=== PATIENT | male | born 1960 | race Caucasian/White ===

== ENCOUNTER 2018-12-30 16:29 | Emergency (ER) | payer OTHER, SELFPAY ==
[2018-12-30 16:51] VITALS: BP 180/63; PULSE 82; RESP 18; TEMP 37; O2SAT 98
--- NOTE | 2018-12-30 16:56 | ED.EXTPRO ---
HPI - Extremity Problem <Karen Gann PA-C - Last Filed: 12/30/18 20:52> General Chief complaint: Extremity Problem,Nontraumatic Stated complaint: left calf caleb horse x2 days Time Seen by Provider: 12/30/18 16:38 Source: patient Mode of arrival: ambulatory Limitations: no limitations History of Present Illness HPI Narrative: This 58-year-old gentleman states he was sitting in a recliner to days ago when he had a sudden cramp ?like a charley horse? in his left calf. He states that he went to stretch it out when he heard and felt a pop in the mid calf, now area feels hard and bruised and swollen. He denies any trauma at all. He feels like swelling is worse today. He states that he does not have any pain in the knee or ankle, is able to bear weight with a cane. He denies any chest pain or dyspnea. He denies any new medication changes, states he is no longer in AFib and stopped diltiazem because it seemed to make symptoms worse. Not on anticoagulation. He does not have any known history of blood clots, Durand cyst, etc. He has not taken any pain medicine aside from trying a Valium which she had in the past for muscle spasms. He states this did not help and just made him sleepy Related Data Allergies Allergy/AdvReac Type Severity Reaction Status Date / Time No Known Drug Allergies Allergy Verified 12/30/18 16:51 Review of Systems <Karen Gann PA-C - Last Filed: 12/30/18 20:52> Review of Systems ROS Unobtainable: All systems reviewed & are unremarkable except as noted in HPI and below PFSH <Karen Gann PA-C - Last Filed: 12/30/18 20:52> Medical History (Updated 12/30/18 @ 18:52 by Karen Gann PA-C) NAVJOT (obstructive sleep apnea) (Chronic) Seasonal allergies (Chronic) Asthma (Chronic) Atrial fibrillation (Chronic) HTN (hypertension) (Chronic) Surgical History (Updated 12/30/18 @ 17:13 by Karen Gann PA-C) Status post hernia repair (Resolved) Status post lumbar surgery (Resolved) Social History Smoking Status: Never smoker Social History Smoking Status: Never smoker Exam <Karen Gann PA-C - Last Filed: 12/30/18 20:52> Narrative Exam Narrative: GENERAL APPEARANCE: Patient sitting comfortably, in no distress. NECK/THYROID: Neck supple LUNGS: Clear to auscultation bilaterally. HEART: Regular rate and rhythm without murmur, normal S1, S2, no S3 or S4. ABDOMEN: Soft, NT, ND, + BS x 4 quadrants EXTREMITIES: No cyanosis or visible edema. Left mid calf is tender to palpation, no palpable masses. Right ankle measures 21.5 cm, calf 39 cm. Left ankle measures 22 cm, calf 42 cm NEUROLOGIC: Alert and oriented, normal speech, and coordination. Initial Vital Signs Initial Vital Signs: Vital Signs Temperature 98.6 F 12/30/18 16:51 Pulse Rate 82 12/30/18 16:51 Respiratory Rate 18 12/30/18 16:51 Blood Pressure 180/63 H 12/30/18 16:51 Pulse Oximetry 98 12/30/18 16:51 <Jaylon Martinez DO - Last Filed: 12/30/18 20:57> Initial Vital Signs Initial Vital Signs: Vital Signs Temperature 98.6 F 12/30/18 16:51 Pulse Rate 82 12/30/18 16:51 Respiratory Rate 18 12/30/18 16:51 Blood Pressure 180/63 H 12/30/18 16:51 Pulse Oximetry 98 12/30/18 16:51 Course <Karen Gann PA-C - Last Filed: 12/30/18 20:52> Course Narrative: Patient does not appear to have a complete tear on exam, able to ambulate comfortably with his cane and compression wrap. He had improvement in pain with Toradol, which he requested wishing to avoid any opioid meds. Advised return if acutely worse or new sx, otherwise f/u with PCP in next few days to reassess and he is agreeable Orders Ordered: ED Orders 12/30/18 17:06 US periph venous low extrem lt Stat 12/30/18 18:10 Basic Metabolic Panel Stat Complete Blood Count AUTO DIFF Stat Magnesium Stat Discontinued Medications Ketorolac Tromethamine (Toradol) 60 mg IM NOW ONE Stop: 12/30/18 18:22 Last Admin: 12/30/18 18:28 Dose: 60 mg Vital Signs - 8 hr 12/30/18 16:51 12/30/18 18:12 Temperature 98.6 F Pulse Rate 82 79 Respiratory Rate 18 18 Blood Pressure 180/63 H Blood Pressure [Left Arm] 147/67 H Pulse Oximetry 98 100 <Jaylon Martinez DO - Last Filed: 12/30/18 20:57> Orders Ordered: ED Orders 12/30/18 17:06 US periph venous low extrem lt Stat 12/30/18 18:10 Basic Metabolic Panel Stat Complete Blood Count AUTO DIFF Stat Magnesium Stat Discontinued Medications Ketorolac Tromethamine (Toradol) 60 mg IM NOW ONE Stop: 12/30/18 18:22 Last Admin: 12/30/18 18:28 Dose: 60 mg Vital Signs - 8 hr 12/30/18 16:51 12/30/18 18:12 Temperature 98.6 F Pulse Rate 82 79 Respiratory Rate 18 18 Blood Pressure 180/63 H Blood Pressure [Left Arm] 147/67 H Pulse Oximetry 98 100 MDM - Extremity (Nontraumatic) <Karen Gann PA-C - Last Filed: 12/30/18 20:52> Lab Data Result diagrams: 12/30/18 18:10 12/30/18 18:10 Lab Results 12/30/18 12/30/18 Range/Units 18:10 18:10 WBC 8.5 (4.5-11.0) X10^3/uL RBC 4.79 (4.5-5.9) X10^6/uL Hgb 13.7 (13.5-17.5) g/dL Hct 39.8 L (41-53) % MCV 83.0 (80-100) fL MCH 28.5 (26-34) PG MCHC 34.3 (30-36) % RDW 13.8 (11.6-14.8) % Plt Count 176 (150-400) X10^3/uL Neut % (Auto) 80.4 H (50-75) % Lymph % (Auto) 11.4 L (25-40) % Yell % (Auto) 5.8 (3-14) % Eos % (Auto) 1.8 L (2-4) % Baso % (Auto) 0.6 (0-2) % Neut # (Auto) 6800 (2122-9932) /uL Lymph # (Auto) 1000 L (5303-0069) /uL Yell # (Auto) 500 (0-900) /uL Eos # (Auto) 200 (0-450) /uL Baso # (Auto) 0 (0-100) /uL Sodium 137 (137-145) mmol/L Potassium 3.9 (3.4-5.1) mmol/L Chloride 103 (98-107) mmol/L Carbon Dioxide 29 (22-32) mmol/L BUN 10 (9-20) mg/dL Creatinine 0.70 (0.66-1.25) mg/dL Estimated GFR > 60.0 (>60) mL/min BUN/Creatinine Ratio 14.3 (6-22) Glucose 120 H (70-100) mg/dL Calcium 9.0 (8.4-10.2) mg/dL Magnesium 2.2 (1.6-2.3) mg/dL Imaging Data Venous US: Radiologist's impression: 26 Karen Gann PA-C Find Patient Imaging Hunter Crowe 58 M 1960 ACTIVITY DATE EXAM STATUS AUTHOR 12/30/18 17:06 [place] [address] Ultrasound Report Signed Patient: Hunter Crowe AMR#: [id number] : 1960cct:[id number] Age/Sex: 58 / MDate of Service: 12/30/18 Loc: ED Accession Number: [id number] Procedure: US periph venous low extrem lt Ordering Provider: Karen Gann P.A-C PROCEDURE: US PERIPH VENOUS LOW EXTREM LT INDICATIONS: LEFT CALF PAIN AND SWELLING TECHNIQUE: Real-time imaging, as well as color and pulse Doppler interrogation, were performed of the lower extremity deep veins from the inguinal ligament to the popliteal fossa. COMPARISON: None. FINDINGS: The common femoral, femoral and popliteal veins are normally compressible, and free of intraluminal thrombus. Color and pulse Doppler demonstrate normal phasic intraluminal flow. There is normal augmentation response to distal compression maneuver. There is a lobulated hypoechoic structure identified within the gastrocnemius/soleus muscles along the posterior aspect of the left lower leg. This structure measures up to 2.4 cm in length. IMPRESSION: 1. No evidence of left lower extremity deep vein thrombosis. 2. Fluid collection within the calf muscles may represent a hematoma related to a muscle injury. MRI is recommended to exclude other etiologies. Dictated by: Malcolm Rojas M.D. on 12/30/2018 at 17:00 Approved by: Malcolm Rojas M.D. on 12/30/2018 at 17:01 <Jaylon Mratinez DO - Last Filed: 12/30/18 20:57> Lab Data Lab Results 12/30/18 12/30/18 Range/Units 18:10 18:10 WBC 8.5 (4.5-11.0) X10^3/uL RBC 4.79 (4.5-5.9) X10^6/uL Hgb 13.7 (13.5-17.5) g/dL Hct 39.8 L (41-53) % MCV 83.0 (80-100) fL MCH 28.5 (26-34) PG MCHC 34.3 (30-36) % RDW 13.8 (11.6-14.8) % Plt Count 176 (150-400) X10^3/uL Neut % (Auto) 80.4 H (50-75) % Lymph % (Auto) 11.4 L (25-40) % Yell % (Auto) 5.8 (3-14) % Eos % (Auto) 1.8 L (2-4) % Baso % (Auto) 0.6 (0-2) % Neut # (Auto) 6800 (8333-2797) /uL Lymph # (Auto) 1000 L (8714-3716) /uL Yell # (Auto) 500 (0-900) /uL Eos # (Auto) 200 (0-450) /uL Baso # (Auto) 0 (0-100) /uL Sodium 137 (137-145) mmol/L Potassium 3.9 (3.4-5.1) mmol/L Chloride 103 (98-107) mmol/L Carbon Dioxide 29 (22-32) mmol/L BUN 10 (9-20) mg/dL Creatinine 0.70 (0.66-1.25) mg/dL Estimated GFR > 60.0 (>60) mL/min BUN/Creatinine Ratio 14.3 (6-22) Glucose 120 H (70-100) mg/dL Calcium 9.0 (8.4-10.2) mg/dL Magnesium 2.2 (1.6-2.3) mg/dL Discharge Plan Departure Patient Disposition: Home Clinical Impression: Hematoma of left lower extremity Qualifiers: Encounter type: initial encounter Qualified Code(s): S80.12XA - Contusion of left lower leg, initial encounter Gastrocnemius muscle tear Qualifiers: Encounter type: initial encounter Laterality: left Qualified Code(s): S86.112A - Strain of other muscle(s) and tendon(s) of posterior muscle group at lower leg level, left leg, initial encounter Discharge Date/Time: 12/30/18 19:17 Interventions: ED Discharge Assessment Last Done: 12/30/18 19:17 Instructions: DI for Calf Muscle Strain Activity Restrictions/Additional Instructions: You have a tear in your calf muscle that has caused a hematoma, or blood collection. I do not think you have a complete tear from what I can tell based on your muscle strength and movement on exam today. Please wear the compression wrap to help with pain and use your cane this weekend. Gentle walking is okay as you tolerate, but avoid stairs and uneven ground. You can take Aleve 1 tablet every 12 hours, if needed for pain. You should return as we talked about if you have any acutely worsening symptoms over the weekend, otherwise follow up with your PCP early next week for recheck to determine whether any further studies or referral may be needed based on your progress [facility] [Outside] <Jaylon Martinez DO - Last Filed: 12/30/18 20:57> [facility] ED Attending Yas Attestation: I was available for consultation during this patient's emergency department encounter
--- NOTE | 2018-12-30 17:06 | DI.US.S_ITS ---
PROCEDURE: US PERIPH VENOUS LOW EXTREM LT INDICATIONS: LEFT CALF PAIN AND SWELLING TECHNIQUE: Real-time imaging, as well as color and pulse Doppler interrogation, were performed of the lower extremity deep veins from the inguinal ligament to the popliteal fossa. COMPARISON: None. FINDINGS: The common femoral, femoral and popliteal veins are normally compressible, and free of intraluminal thrombus. Color and pulse Doppler demonstrate normal phasic intraluminal flow. There is normal augmentation response to distal compression maneuver. There is a lobulated hypoechoic structure identified within the gastrocnemius/soleus muscles along the posterior aspect of the left lower leg. This structure measures up to 2.4 cm in length. IMPRESSION: 1. No evidence of left lower extremity deep vein thrombosis. 2. Fluid collection within the calf muscles may represent a hematoma related to a muscle injury. MRI is recommended to exclude other etiologies. Dictated by: Malcolm Rojas M.D. on 12/30/2018 at 17:00 Approved by: Malcolm Rojas M.D. on 12/30/2018 at 17:01
--- NOTE | 2018-12-30 17:15 | ED_ITS ---
HPI - Extremity Problem <Karen Gann PA-C - Last Filed: 12/30/18 20:52> General Chief complaint: Extremity Problem,Nontraumatic Stated complaint: left calf caleb horse x2 days Time Seen by Provider: 12/30/18 16:38 Source: patient Mode of arrival: ambulatory Limitations: no limitations History of Present Illness HPI Narrative: This 58-year-old gentleman states he was sitting in a recliner to days ago when he had a sudden cramp ?like a charley horse? in his left calf. He states that he went to stretch it out when he heard and felt a pop in the mid calf, now area feels hard and bruised and swollen. He denies any trauma at all. He feels like swelling is worse today. He states that he does not have any pain in the knee or ankle, is able to bear weight with a cane. He denies any chest pain or dyspnea. He denies any new medication changes, states he is no longer in AFib and stopped diltiazem because it seemed to make symptoms worse. Not on anticoagulation. He does not have any known history of blood clots, Durand cyst, etc. He has not taken any pain medicine aside from trying a Valium which she had in the past for muscle spasms. He states this did not help and just made him sleepy Related Data Allergies Allergy/AdvReac Type Severity Reaction Status Date / Time No Known Drug Allergies Allergy Verified 12/30/18 16:51 Review of Systems <Karen Gann PA-C - Last Filed: 12/30/18 20:52> Review of Systems ROS Unobtainable: All systems reviewed & are unremarkable except as noted in HPI and below PFSH <Karen Gann PA-C - Last Filed: 12/30/18 20:52> Medical History (Updated 12/30/18 @ 18:52 by Karen Gann PA-C) NAVJOT (obstructive sleep apnea) (Chronic) Seasonal allergies (Chronic) Asthma (Chronic) Atrial fibrillation (Chronic) HTN (hypertension) (Chronic) Surgical History (Updated 12/30/18 @ 17:13 by Karen Gann PA-C) Status post hernia repair (Resolved) Status post lumbar surgery (Resolved) Social History Smoking Status: Never smoker Social History Smoking Status: Never smoker Exam <Karen Gann PA-C - Last Filed: 12/30/18 20:52> Narrative Exam Narrative: GENERAL APPEARANCE: Patient sitting comfortably, in no distress. NECK/THYROID: Neck supple LUNGS: Clear to auscultation bilaterally. HEART: Regular rate and rhythm without murmur, normal S1, S2, no S3 or S4. ABDOMEN: Soft, NT, ND, + BS x 4 quadrants EXTREMITIES: No cyanosis or visible edema. Left mid calf is tender to palpation, no palpable masses. Right ankle measures 21.5 cm, calf 39 cm. Left ankle measures 22 cm, calf 42 cm NEUROLOGIC: Alert and oriented, normal speech, and coordination. Initial Vital Signs Initial Vital Signs: Vital Signs Temperature 98.6 F 12/30/18 16:51 Pulse Rate 82 12/30/18 16:51 Respiratory Rate 18 12/30/18 16:51 Blood Pressure 180/63 H 12/30/18 16:51 Pulse Oximetry 98 12/30/18 16:51 <Jaylon Martinez DO - Last Filed: 12/30/18 20:57> Initial Vital Signs Initial Vital Signs: Vital Signs Temperature 98.6 F 12/30/18 16:51 Pulse Rate 82 12/30/18 16:51 Respiratory Rate 18 12/30/18 16:51 Blood Pressure 180/63 H 12/30/18 16:51 Pulse Oximetry 98 12/30/18 16:51 Course <Karen Gann PA-C - Last Filed: 12/30/18 20:52> Course Narrative: Patient does not appear to have a complete tear on exam, able to ambulate comfortably with his cane and compression wrap. He had improvement in pain with Toradol, which he requested wishing to avoid any opioid meds. Advised return if acutely worse or new sx, otherwise f/u with PCP in next few days to reassess and he is agreeable Orders Ordered: ED Orders 12/30/18 17:06 US periph venous low extrem lt Stat 12/30/18 18:10 Basic Metabolic Panel Stat Complete Blood Count AUTO DIFF Stat Magnesium Stat Discontinued Medications Ketorolac Tromethamine (Toradol) 60 mg IM NOW ONE Stop: 12/30/18 18:22 Last Admin: 12/30/18 18:28 Dose: 60 mg Vital Signs - 8 hr 12/30/18 16:51 12/30/18 18:12 Temperature 98.6 F Pulse Rate 82 79 Respiratory Rate 18 18 Blood Pressure 180/63 H Blood Pressure [Left Arm] 147/67 H Pulse Oximetry 98 100 <Jaylon Martinez DO - Last Filed: 12/30/18 20:57> Orders Ordered: ED Orders 12/30/18 17:06 US periph venous low extrem lt Stat 12/30/18 18:10 Basic Metabolic Panel Stat Complete Blood Count AUTO DIFF Stat Magnesium Stat Discontinued Medications Ketorolac Tromethamine (Toradol) 60 mg IM NOW ONE Stop: 12/30/18 18:22 Last Admin: 12/30/18 18:28 Dose: 60 mg Vital Signs - 8 hr 12/30/18 16:51 12/30/18 18:12 Temperature 98.6 F Pulse Rate 82 79 Respiratory Rate 18 18 Blood Pressure 180/63 H Blood Pressure [Left Arm] 147/67 H Pulse Oximetry 98 100 MDM - Extremity (Nontraumatic) <Karen Gann PA-C - Last Filed: 12/30/18 20:52> Lab Data Result diagrams: 12/30/18 18:10 12/30/18 18:10 Lab Results 12/30/18 12/30/18 Range/Units 18:10 18:10 WBC 8.5 (4.5-11.0) X10^3/uL RBC 4.79 (4.5-5.9) X10^6/uL Hgb 13.7 (13.5-17.5) g/dL Hct 39.8 L (41-53) % MCV 83.0 (80-100) fL MCH 28.5 (26-34) PG MCHC 34.3 (30-36) % RDW 13.8 (11.6-14.8) % Plt Count 176 (150-400) X10^3/uL Neut % (Auto) 80.4 H (50-75) % Lymph % (Auto) 11.4 L (25-40) % [place] % (Auto) 5.8 (3-14) % Eos % (Auto) 1.8 L (2-4) % Baso % (Auto) 0.6 (0-2) % Neut # (Auto) 6800 (3001-4342) /uL Lymph # (Auto) 1000 L (2544-4701) /uL [place] # (Auto) 500 (0-900) /uL Eos # (Auto) 200 (0-450) /uL Baso # (Auto) 0 (0-100) /uL Sodium 137 (137-145) mmol/L Potassium 3.9 (3.4-5.1) mmol/L Chloride 103 (98-107) mmol/L Carbon Dioxide 29 (22-32) mmol/L BUN 10 (9-20) mg/dL Creatinine 0.70 (0.66-1.25) mg/dL Estimated GFR > 60.0 (>60) mL/min BUN/Creatinine Ratio 14.3 (6-22) Glucose 120 H (70-100) mg/dL Calcium 9.0 (8.4-10.2) mg/dL Magnesium 2.2 (1.6-2.3) mg/dL Imaging Data Venous US: Radiologist's impression: 26 Karen Gann PA-C Find Patient Imaging Hunter Crowe 58 M 1960 ACTIVITY DATE EXAM STATUS AUTHOR 12/30/18 17:06 [place] [address] Ultrasound Report Signed Patient: Hunter Crowe AMR#: [id number] : 1960cct:[id number] Age/Sex: 58 / MDate of Service: 12/30/18 Loc: ED Accession Number: [id number] Procedure: US periph venous low extrem lt Ordering Provider: Karen Gann P.A-C PROCEDURE: US PERIPH VENOUS LOW EXTREM LT INDICATIONS: LEFT CALF PAIN AND SWELLING TECHNIQUE: Real-time imaging, as well as color and pulse Doppler interrogation, were performed of the lower extremity deep veins from the inguinal ligament to the popliteal fossa. COMPARISON: None. FINDINGS: The common femoral, femoral and popliteal veins are normally compressible, and free of intraluminal thrombus. Color and pulse Doppler demonstrate normal phasic intraluminal flow. There is normal augmentation response to distal compression maneuver. There is a lobulated hypoechoic structure identified within the gastrocnemius /soleus muscles along the posterior aspect of the left lower leg. This structure measures up to 2.4 cm in length. IMPRESSION: 1. No evidence of left lower extremity deep vein thrombosis. 2. Fluid collection within the calf muscles may represent a hematoma related to a muscle injury. MRI is recommended to exclude other etiologies. Dictated by: Malcolm Rojas M.D. on 12/30/2018 at 17:00 Approved by: Malcolm Rojas M.D. on 12/30/2018 at 17:01 <Jaylon Martinez DO - Last Filed: 12/30/18 20:57> Lab Data Lab Results 12/30/18 12/30/18 Range/Units 18:10 18:10 WBC 8.5 (4.5-11.0) X10^3/uL RBC 4.79 (4.5-5.9) X10^6/uL Hgb 13.7 (13.5-17.5) g/dL Hct 39.8 L (41-53) % MCV 83.0 (80-100) fL MCH 28.5 (26-34) PG MCHC 34.3 (30-36) % RDW 13.8 (11.6-14.8) % Plt Count 176 (150-400) X10^3/uL Neut % (Auto) 80.4 H (50-75) % Lymph % (Auto) 11.4 L (25-40) % [place] % (Auto) 5.8 (3-14) % Eos % (Auto) 1.8 L (2-4) % Baso % (Auto) 0.6 (0-2) % Neut # (Auto) 6800 (6372-6196) /uL Lymph # (Auto) 1000 L (5983-8138) /uL [place] # (Auto) 500 (0-900) /uL Eos # (Auto) 200 (0-450) /uL Baso # (Auto) 0 (0-100) /uL Sodium 137 (137-145) mmol/L Potassium 3.9 (3.4-5.1) mmol/L Chloride 103 (98-107) mmol/L Carbon Dioxide 29 (22-32) mmol/L BUN 10 (9-20) mg/dL Creatinine 0.70 (0.66-1.25) mg/dL Estimated GFR > 60.0 (>60) mL/min BUN/Creatinine Ratio 14.3 (6-22) Glucose 120 H (70-100) mg/dL Calcium 9.0 (8.4-10.2) mg/dL Magnesium 2.2 (1.6-2.3) mg/dL Discharge Plan Departure Patient Disposition: Home Clinical Impression: Hematoma of left lower extremity Qualifiers: Encounter type: initial encounter Qualified Code(s): S80.12XA - Contusion of left lower leg, initial encounter Gastrocnemius muscle tear Qualifiers: Encounter type: initial encounter Laterality: left Qualified Code(s): S86.112A - Strain of other muscle(s) and tendon(s) of posterior muscle group at lower leg level, left leg, initial encounter Discharge Date/Time: 12/30/18 19:17 Interventions: ED Discharge Assessment Last Done: 12/30/18 19:17 Instructions: DI for Calf Muscle Strain Activity Restrictions/Additional Instructions: You have a tear in your calf muscle that has caused a hematoma, or blood collection. I do not think you have a complete tear from what I can tell based on your muscle strength and movement on exam today. Please wear the compression wrap to help with pain and use your cane this weekend. Gentle walking is okay as you tolerate, but avoid stairs and uneven ground. You can take Aleve 1 tablet every 12 hours, if needed for pain. You should return as we talked about if you have any acutely worsening symptoms over the weekend, otherwise follow up with your PCP early next week for recheck to determine whether any further studies or referral may be needed based on your progress [facility]: [facility] [Outside] <Jaylon Martinez DO - Last Filed: 12/30/18 20:57> [facility] ED Attending Yas Attestation: I was available for consultation during this patient's emergency department encounter
[2018-12-30 18:12] VITALS: BP 147/67; PULSE 79; RESP 18; O2SAT 100
[2018-12-30 18:18] LABS: Add Manual Diff / Slide Review NO; Basophils Absolute Auto 0 /uL (0-100); Basophils Percent Auto 0.6 % (0-2); Eosinophils Absolute Auto 200 /uL (0-450); Eosinophils Percent Auto 1.8 % (2-4); Hematocrit 39.8 % (41-53); Hemoglobin 13.7 g/dL (13.5-17.5); Lymphocytes Absolute Auto 1000 /uL (1100-4500); Lymphocytes Percent Auto 11.4 % (25-40); Mean Corpuscular HGB Conc 34.3 % (30-36); Mean Corpuscular Hemoglobin 28.5 PG (26-34); Monocytes Absolute Auto 500 /uL (0-900); Monocytes Percent Auto 5.8 % (3-14); Neutrophils Absolute Auto 6800 /uL (1500-7000); Neutrophils Percent Auto 80.4 % (50-75); Platelet Count 176 X10^3/uL (150-400); Red Blood Cell Count 4.79 X10^6/uL (4.5-5.9); Red Cell Distribution Width 13.8 % (11.6-14.8); White Blood Cell Count 8.5 X10^3/uL (4.5-11.0)
[2018-12-30] MEDS: KETOROLAC 60 MG/2 ML VIAL IM (18:28)
[2018-12-30 18:36] LABS: BUN Creatinine Ratio 14.3 (6-22); Blood Urea Nitrogen 10 mg/dL (9-20); Carbon Dioxide 29 mmol/L (22-32); Chloride 103 mmol/L (98-107); Estimated Glomerular Filt Rate > 60.0 mL/min (>60); Glucose 120 mg/dL (70-100); HEMOLYSIS 20 (0-50); Magnesium 2.2 mg/dL (1.6-2.3); Potassium 3.9 mmol/L (3.4-5.1); Sodium 137 mmol/L (137-145)
== END 2018-12-30 19:17 | disposition home or self-care (01) ==
PROVIDERS: Emergency Provider Internal Medicine
DX: S80.12XA Contusion of left lower leg, initial encounter (principal); S86.112A Strain of other muscle(s) and tendon(s) of posterior muscle group at lower leg level, left leg, initial encounter
CPT/HCPCS: 36415; 80048; 83735; 85025; 93971; 96372; 99282; 99284; J1885

== ENCOUNTER → 2023-06-24 13:57 | Outpatient (CLI) | payer OTHER, SELFPAY ==
--- NOTE | 2023-06-24 13:59 | DI.MRI.S_ITS ---
PROCEDURE: MR LUMBAR SPINE WO CON INDICATIONS: Low back pain, unspecified TECHNIQUE: Noncontrast sagittal T1 spin echo and T2 fast echo, sagittal STIR, and T2 fast spin echo through the lumbar spine. In cases with scoliosis, additional coronal T2 fast spin echo may be performed. COMPARISON: None. FINDINGS: Image quality: Excellent. Alignment and Curvature: There is normal bony alignment. Patient is status post posterior fixation and laminectomy from L4-S1. Bone Marrow: Marrow is of normal overall signal. No acute vertebral body compression fractures. Spinal Cord: Conus medullaris terminates at the L1 level. Visualized cord demonstrates normal signal and size. Paraspinous Soft Tissues: No paravertebral masses. T12-L1: Mild disc desiccation and height loss. Mild facet ligamentum flavum hypertrophy. No canal stenosis. No foraminal stenosis. L1-L2: Mild disc desiccation and height loss. Moderate facet and ligamentum flavum hypertrophy. Mild canal stenosis. Mild left foraminal narrowing. No right neural foraminal stenosis. L2-L3: Mild disc desiccation and height loss. Broad-based disc bulge. Severe facet ligamentum flavum hypertrophy. Mild canal stenosis. No foraminal stenosis. L3-L4: Severe disc desiccation and height loss. Broad-based disc bulge. Severe facet sclerosis. Laminectomy. No canal stenosis. Mild bilateral foraminal stenosis. L4-L5: Severe disc desiccation and height loss. Broad-based disc bulge. Laminectomy. No canal stenosis. Moderate bilateral foraminal stenosis. L5-S1: Severe disc desiccation and height loss. Laminectomy. No canal stenosis. Severe facet sclerosis. Severe right and moderate left foraminal narrowing. There is flattening of the exiting right nerve root. IMPRESSION: 1. Severe disc desiccation and height loss from L3-S1. 2. Mild canal stenosis at L1-2 and L2-3. No other canal stenosis of the lumbar spine. 3. Severe right foraminal stenosis at L5-S1 with flattening of the exiting nerve root. 4. Moderate bilateral foraminal stenosis at L4-5 and moderate left foraminal stenosis at L5-S1. Dictated by: Alem Green M.D. on 06/24/2023 at 16:34 Approved by: Alem Green M.D. on 06/24/2023 at 16:39
== END ==
PROVIDERS: Referring Provider Nurse Practitioner Primary Care; Visit Provider Nurse Practitioner Primary Care
DX: M48.061 Spinal stenosis, lumbar region without neurogenic claudication (principal); M48.07 Spinal stenosis, lumbosacral region; M54.50 Low back pain, unspecified
CPT/HCPCS: 72148